=== PATIENT | female | born 1940 | race Two or more races ===

== ENCOUNTER 2017-09-03 05:50 | Day surgery (SDC) | payer OTHER ==
[~2017-09-03 05:50] MED LIST: ALTACE5 MG PO; CENTRUM ADULTS1 EACH PO; GLIPIZIDE ER2.5 MG PO; [UNRECOGNIZED DRUG - OTHER] PO
[2017-09-03] MEDS ORDERED: MACROBID 100 M100 MG PO (09:39)
[2017-09-03] MEDS ORDERED: ULTRACET PO (09:39)
== END 2017-09-03 12:00 | disposition home or self-care (01) ==
LOC: CIR.AMB 05:50
DX: N81.3 Complete uterovaginal prolapse (principal); N39.3 Stress incontinence (female) (male)
CPT/HCPCS: 57106; 57210; 57288; C1771